=== PATIENT | female | born 1975 | race Two or more races ===

== ENCOUNTER 2025-02-08 09:50 | Emergency (ER) | payer OTHER ==
[~2025-02-08] VITALS: Ht 162.6 cm; Wt 90.7 kg
[~2025-02-08 09:50] MED LIST: BENZONATATE200 M1 PO; CLARITIN10 MG PO; IBUPROFEN800 MG PO; MEDROL4 MG PO; ORPH100T PO; ZITHROMAX500 MG PO
[2025-02-08] MEDS ORDERED: ONDANSETRON HCL 2 MG/ML VIAL IV ONE (10:45)
[2025-02-08] MEDS ORDERED: FAMOtidine 10 MG/ML (4ML VIAL) IV ONE (10:45)
[2025-02-08] MEDS ORDERED: 0.9 % SODIUM CHLORIDE 1,000 ML IV ONE (10:45)
[2025-02-08] MEDS ORDERED: KETOROLAC TROMETHAMINE 30 MG VIAL ONE (10:51)
[2025-02-08] MEDS ORDERED: ONDANSETRON HCL 2 MG/ML VIAL ONE (10:51)
[2025-02-08] MEDS ORDERED: FAMOTIDINE/PF 20 MG/2 ML VIAL ONE (10:52)
[2025-02-08] MEDS ORDERED: KETOROLAC TROMETHAMINE 30 MG VIAL IV ONE (11:00)
[2025-02-08 11:28] LABS: URINE APPEARANCE Clear; URINE BILIRRUBIN Negative (NEGATIVE); URINE BLOOD Negative; URINE COLOR Yellow; URINE GLUCOSE Negative (NEGATIVE); URINE KETONE Negative (NEGATIVE); URINE LEUKOCYTE Negative; URINE NITRATE Negative; URINE PROTEIN Negative (NEGATIVE); URINE UROBILINOGEN 0.2 E.U./dl
[2025-02-08 11:33] LABS: URINE BACTERIA 453.9 uL (0.0-1933); URINE EPITHELIAL CELLS 11.2 uL (0.0-38.8)
[2025-02-08 11:34] LABS: URINE RBC 0.8 uL (0.0-20.8)
[2025-02-08 11:38] LABS: HEMATOCRIT 38.2 % (36.0-45.00); HEMOGLOBIN 13.3 g/dL (12.0-15.00); MEAN CELL VOLUME 86.5 fL (80.00-100.00); MEAN CORPUSCULAR HEMOGLOBIN 30.2 pg (27.00-32.0); MEAN CORPUSCULAR HGB CONC 34.9 g/dl (32.0-36.0); PLATELET COUNT 258 K/uL (150-450); RED BLOOD COUNT 4.42 M/uL (4.00-6.00); RED CELL DISTRIBUTION WIDTH 12.8 % (11.5-14.5)
[2025-02-08 11:59] LABS: ALBUMIN 3.5 gm/dL (3.4-5.0); BILIRUBIN TOTAL 1.13 mg/dL (0.3-1.2); BILIRUBIN,CONJUGATED 0.22 mg/dL (0.0-0.2); BILIRUBIN,UNCONJUGATED 0.91 mg/dL (0.0-0.6); CALCIUM 8.7 mg/dL (8.5-10.1); CREATININE SERUM 0.65 mg/dL (0.55-1.02); GFR 96.09; POTASSIUM 3.91 mEq/L (3.5-5.1); TOTAL PROTEIN 7.5 gm/dL (6.4-8.2)
[2025-02-08 12:02] LABS: INR 1.14; PARTIAL THROMBOPLASTIN TIME 28.8 SECONDS (22.0-34.0); PROTHROMBIN TIME 12.3 SECONDS (9.0-11.5)
[2025-02-08] MEDS ORDERED: PEPCID AC20 MG PO (16:22)
[2025-02-08] MEDS ORDERED: NORFLEX100MG PO (16:22)
== END 2025-02-08 16:46 | disposition home or self-care (01) ==
LOC: ER 09:50
PROVIDERS: General Practice
DX: R10.11 Right upper quadrant pain (principal); R19.7 Diarrhea, unspecified; R11.2 Nausea with vomiting, unspecified; K80.20 Calculus of gallbladder without cholecystitis without obstruction

== ENCOUNTER 2025-02-23 08:35 | Day surgery (SDC) | payer OTHER ==
[2025-02-18 14:03] VITALS: BP 140/87
[~2025-02-23] VITALS: Ht 162.6 cm; Wt 88.9 kg
[~2025-02-23 08:35] MED LIST changes: +FLONASE16 GM; +MONTELUKAST SOD10 MG PO; +NORFLEX100MG PO; +PEPCID AC20 MG PO
[2025-02-23] MEDS ORDERED: CEFAZOLIN SODIUM 1,000 MG VIAL ONE (14:24)
[2025-02-23] MEDS ORDERED: LIDOCAINE HCL 1%/EPINEPHRINE 20ML VIAL IJ ONE (16:30)
[2025-02-23] MEDS ORDERED: BUPIVACAINE HCL/Mpf 0.5% 10ML VIAL ONE (16:30)
[2025-02-23] MEDS ORDERED: CEFAZOLIN SODIUM 1,000 MG VIAL IV SCH (17:30)
[2025-02-23] MEDS ORDERED: LIDOCAINE HCL 1% 20 ML VIAL IJ ONE (17:37)
[2025-02-23] MEDS ORDERED: SUGAMMADEX SODIUM 200 MG/2 ML VIAL IV ONE (18:27)
[2025-02-23] MEDS ORDERED: MORPHINE SULFATE 4 MG/ML VIAL IV ONE ×2 (21:10→21:40)
== END 2025-02-23 23:00 | disposition home or self-care (01) ==
LOC: CIR.AMB 08:35
PROVIDERS: ATTEND Student in an Organized Health Care Education/Training Program
DX: K80.10 Calculus of gallbladder with chronic cholecystitis without obstruction (principal)

== ENCOUNTER 2025-05-11 13:39 | Emergency (ER) | payer OTHER ==
[~2025-05-11] VITALS: Ht 162.6 cm; Wt 88.0 kg
[2025-05-11] MEDS ORDERED: GUAIFEN/DEXTROMETHORPHAN/PE 10 ML BLIST.PACK PO ONE (14:14)
[2025-05-11] MEDS ORDERED: DEXAMETHASONE SODIUM PHOSPHATE 4 MG/ML VIAL ONE (14:14)
[2025-05-11] MEDS ORDERED: DEXAMETHASONE SODIUM PHOSPHATE 4 MG/ML VIAL IM ONE (14:15)
[2025-05-11] MEDS ORDERED: GUAIFENESIN/DEXTROMETHORPHAN 100MG/10ML BLIST.PACK PO ONE (14:30)
[2025-05-11 14:57] LABS: COVID-19 AG POSITIVE (NEGATIVE)
[2025-05-11] MEDS ORDERED: TUSNEL LIQUID178 ML PO (15:15)
[2025-05-11] MEDS ORDERED: PAXLOVID 300-11 EAC1 PO (15:15)
[2025-05-11 15:39] VITALS: BP 127/75; O2SAT 98
== END 2025-05-11 15:43 | disposition home or self-care (01) ==
LOC: ER 13:39
PROVIDERS: General Practice
DX: U07.1 COVID-19 (principal)

== ENCOUNTER 2025-05-12 08:28 | Outpatient (CLI) | payer OTHER ==
[~2025-05-12 08:28] MED LIST changes: +PAXLOVID 300-11 EAC1 PO; +TUSNEL LIQUID178 ML PO
== END 2025-05-12 08:30 | disposition home or self-care (01) ==
LOC: RAD 08:28
PROVIDERS: ATTEND Orthopaedic Surgery
DX: M25.562 Pain in left knee (principal); S66.011A Strain of long flexor muscle, fascia and tendon of right thumb at wrist and hand level, initial encounter; X58.XXXA Exposure to other specified factors, initial encounter; Y93.9 Activity, unspecified; Y92.9 Unspecified place or not applicable; Y99.9 Unspecified external cause status